=== PATIENT | female | born 1975 | race Caucasian/White ===

== ENCOUNTER 2017-06-20 17:15 | Emergency (ER) | payer MEDICAID ==
[~2017-06-20] VITALS: Ht 160 cm; Wt 86.2 kg
[2017-06-20 19:03] VITALS: BP 119/78
== END 2017-06-20 19:03 | disposition home or self-care (01) ==
LOC: M.ERS 17:15
DX: J03.90 Acute tonsillitis, unspecified (principal); R09.82 Postnasal drip